=== PATIENT | male | born 2000 | race African-American/Black ===

== ENCOUNTER 2023-03-08 17:23 | Emergency (ER) | payer SELFPAY ==
[~2023-03-08] VITALS: Ht 175.3 cm; Wt 73.0 kg
[2023-03-08 17:29] VITALS: BP 122/70; PULSE 88; RESP 18; TEMP 98.5; O2SAT 100
[2023-03-08] MEDS ORDERED: TOPUD MT (22:31)
[2023-03-08] MEDS ORDERED: CYCL5TAB MT (22:31)
[2023-03-08] MEDS ORDERED: LIDO700A15 TP (22:31)
[2023-03-08] MEDS ORDERED: KETOROLAC 60MG/2ML VIAL IM ONE (22:45)
== END 2023-03-08 23:29 | disposition home or self-care (01) ==
LOC: ER 17:23
DX: G89.29 Other chronic pain (principal); M54.89 Other dorsalgia; M25.579 Pain in unspecified ankle and joints of unspecified foot; J45.909 Unspecified asthma, uncomplicated; F32.A Depression, unspecified
CPT/HCPCS: 96372; 99283; J1885; Z7610